=== PATIENT | male | born 1980 | race African-American/Black ===

== ENCOUNTER 2021-09-08 08:27 | Day surgery (SDC) | payer MEDICAID ==
[2021-09-06 08:59] LABS: COVID AG,FIA SOURCE NASOPHARYNGEAL
[~2021-09-08] VITALS: Ht 182.9 cm; Wt 100.0 kg
[~2021-09-08 08:27] MED LIST: SODIUM CHLORIDE 0.9% 1,000 ML IV ONE; [UNRECOGNIZED DRUG - REMARK] PO
[2021-09-08] MEDS ORDERED: SODIUM CHLORIDE 0.9% 1,000 ML ONE (09:10)
[2021-09-08] MEDS ORDERED: OXYGEN THERAPY IH SCH (10:45)
[2021-09-08] MEDS ORDERED: LIDOCAINE/PF 2% 5 ML VIAL IM ONE (12:00)
[2021-09-08] MEDS ORDERED: PROPOFOL 1% 20 ML VIAL IVP ONE (12:00)
== END 2021-09-08 11:50 | disposition home or self-care (01) ==
LOC: SURGERY 08:27
PROVIDERS: ATTEND Specialist
DX: R93.5 Abnormal findings on diagnostic imaging of other abdominal regions, including retroperitoneum (principal); K44.9 Diaphragmatic hernia without obstruction or gangrene; G47.33 Obstructive sleep apnea (adult) (pediatric); Z79.899 Other long term (current) drug therapy; Z98.890 Other specified postprocedural states
CPT/HCPCS: 43239; 87426; 88305; 88312; 88313; C1769; C9803; J2704; J3490; J7030